=== PATIENT | female | born 1980 | race Caucasian/White ===

== ENCOUNTER 2021-03-09 20:13 | Emergency (ER) | payer OTHER ==
[2021-03-09 20:18] VITALS: TEMP 98.3; BMI 31.2
[2021-03-09 22:05] LABS: PH,URINE 6.5 (5.0-8.0); URINE APPEARANCE CLEAR; URINE BILIRUBIN NEGATIVE (NEGATIVE); URINE COLOR YELLOW; URINE GLUCOSE (UA) NEGATIVE (NEGATIVE); URINE KETONE NEGATIVE (NEGATIVE); URINE LEUK ESTERASE NEGATIVE (NEGATIVE); URINE NITRITE NEGATIVE (NEGATIVE); URINE PROTEIN NEGATIVE (NEGATIVE); URINE UROBILINOGEN 0.2 mg/dL (0.2-1.0)
[2021-03-09] MEDS ORDERED: SODIUM CHLORIDE 1,000 ML IV STA (22:12)
[2021-03-09] MEDS ORDERED: MAG HYDROX/AL HYDROX/SIMETH 30 ML UNIT-DOSE CUP PO ONE (22:12)
[2021-03-09] MEDS ORDERED: FAMOTIDINE 20 MG/50 ML IVPB 20 MG/50 ML MG IVPB ONE ×2 (22:12→22:20)
[2021-03-09] MEDS ORDERED: ONDANSETRON 4 MG/2 ML VIAL IVPB ONE (22:12)
[2021-03-09 22:20] LABS: BASO % 0.7 % (0-2.0); EOS % 0.8 % (0-4.5); MCH 29.3 pg (25.7-33.7); MCHC 34.1 g/dl (32.0-36.0); MEAN CELL VOLUME 85.9 fl (80-96); NEUT % 73.5 % (42.8-82.8); PLATELET COUNT 314 K/MM3 (134-434); RBC 4.77 M/mm3 (3.60-5.2); RDW 13.5 % (11.6-15.6); WHITE BLOOD COUNT 10.7 K/mm3 (4.0-10.0)
[2021-03-09] MEDS ORDERED: MAG HYDROX/AL HYDROX/SIMETH 30 ML UNIT-DOSE CUP ONE (22:20)
[2021-03-09] MEDS ORDERED: ONDANSETRON 4 MG/2 ML VIAL ONE (22:20)
[2021-03-09 22:28] LABS: HCG,QUALITATIVE URINE NEGATIVE
[2021-03-09 22:46] LABS: CALCIUM 9.1 mg/dL (8.5-10.1)
[2021-03-09 22:47] LABS: BLOOD UREA NITROGEN 10.1 mg/dL (7-18)
[2021-03-09 22:50] LABS: CREATININE 0.6 mg/dL (0.55-1.3)
[2021-03-09 22:51] LABS: BILIRUBIN,TOTAL 0.4 mg/dL (0.2-1); TOT PROT 8.3 g/dl (6.4-8.2)
[2021-03-09] MEDS ORDERED: KETOROLAC TROMETHAMINE 15 MG/ML VIAL IVPUSH ONE (23:31)
[2021-03-09] MEDS ORDERED: KETOROLAC TROMETHAMINE 15 MG/ML VIAL ONE (23:37)
[2021-03-10 00:10] VITALS: BP 135/68; PULSE 56
== END 2021-03-10 00:09 | disposition home or self-care (01) ==
LOC: JER 20:13
PROC: 3E033GC Introduction of Other Therapeutic Substance into Peripheral Vein, Percutaneous Approach (ICD-10-PCS; principal; 2021-03-09)
PROC: 3E033GC Introduction of Other Therapeutic Substance into Peripheral Vein, Percutaneous Approach (ICD-10-PCS; 2021-03-09)
PROC: 3E033GC Introduction of Other Therapeutic Substance into Peripheral Vein, Percutaneous Approach (ICD-10-PCS; 2021-03-09)
PROC: 3E0337Z Introduction of Electrolytic and Water Balance Substance into Peripheral Vein, Percutaneous Approach (ICD-10-PCS; 2021-03-09)
DX: K29.00 Acute gastritis without bleeding (principal); R10.13 Epigastric pain
CPT/HCPCS: 36415; 76705-TC; 80053; 81003; 83690; 84703; 85025; 93005; 93010; 99285-25